=== PATIENT | female | born 1955 | race Caucasian/White ===

== ENCOUNTER 2022-08-10 09:01 | Day surgery (SDC) | payer OTHER, SELFPAY ==
[2022-08-10] VITALS (7 sets, daily range): BP systolic 89–148; BP diastolic 53–72; PULSE 70–74; RESP 14–18; TEMP 36.1–36.3; O2SAT 94–97; BMI 38.1
[2022-08-10] MEDS: Vancomycin IV 1,000 MG/200 ML BAG 200 MG IV (09:40)
--- NOTE | 2022-08-10 09:40 | RAD_ITS ---
STUDY: X-RAY - PELVIS REASON FOR EXAM: Female, 67 years old. AXONICS STAGE 1. TECHNIQUE: Fluoroscopy was provided in the OR during the placement of a bladder stimulator. 15.3 seconds of fluoroscopy were utilized. Exposure of 7.58 mGy. COMPARISON: None. FINDINGS: Fluoroscopy was provided. 3 procedural images were performed for documentation purposes. Please refer to the procedural report for further details. RAD/Pelvis 1 or 2 Views IMPRESSION: Fluoroscopy provided during the placement of a bladder stimulator. Electronically Signed: Monty Li DO at 19:02 EDT ,
[2022-08-10] MEDS: Lactated Ringers 1,000 ML 15 ML IV (09:49)
--- NOTE | 2022-08-10 10:30 | EX.PCM.DISCH ---
Discharge Instructions Diet Discharge Diet: No restrictions Activity Discharge Activity: May Not Shower May resume sexual activity in: 3 weeks Dressing / Incision Call your doctor if your incision/area has: Continuous Slow Oozing, Sudden Increased Bleeding, Increased Pain/ Swelling, Increased Redness, Foul Smelling Discharge and Swelling at the incision site Call your doctor if you observe: Fever of 101 or Higher and Inability to have a bowel movement Suture Line Care: Avoid Pulling/Pushing and Avoid Pinching/Bending Change Dressing in: leave in place till F/U Cleanse incision/area with: Do not get Incision Wet and Keep Dressing Clean & Dry Follow Up Care Please Follow Up With: Jenny Farley MD When: next week, call for appt if not already made Test Results: Test results from this visit will be discussed in further detail at your follow-up appointment, if applicable. Discharge Plan Admission Attending Provider: Jenny Farley Primary Care Provider: Oswaldo Wyatt Discharge Orders/Prescriptions Prescriptions: New oxycodone-acetaminophen [Percocet] 5-325 mg tablet 1 tab PO Q8H PRN (Reason: pain) 3 Days Qty: 10 0RF cephalexin [cephalexin] 500 mg capsule 500 mg PO Q12 3 Days Qty: 6 0RF Continued acetaminophen [Tylenol] 325 mg Tablet 650 mg PO Q4H PRN (Reason: Pain) amlodipine 5 mg Tablet 5 mg PO DAILY levothyroxine 75 mcg Tablet 75 mcg PO DAILY Discontinued tamsulosin 0.4 mg Capsule 0.4 mg PO QHS Referrals / Follow Up: Oswaldo Wyatt DO [Primary Care Provider] - Disposition Disposition (needs filled in before D/C Order can be placed): Home, Self Care
--- NOTE | 2022-08-10 10:34 | OP.PCM_ITS ---
Report of Operation Date of Procedure: 08/10/22 Pre-Operative Diagnosis: urinary retention, neurogenic bladder, urinary tract i nfections Post-Operative Diagnosis: same Surgery/Procedure Performed:: Axonics Stage 1, pocket on the right side Surgeon: Jenny Farley Type of Anesthesia: MAC Description of Procedure: The patient is a 67-year-old female who has been diagnosed with neurogenic bladder and urinary retention after undergoing testing in the office now presents for a stage I Axonics trial. Informed consent has been obtained. The patient was taken to the operating room and placed in a prone position on the operating room table. She is appropriately padded and secured to the table. Anesthesia monitored the head, neck, airway, IV access and vital signs throughout the case. Once anesthesia was appropriately administered, the patient was prepped and draped in usual sterile fashion. Fluoroscopic visualization was used to map out the patient's sacral anatomy. The area overlying her right S3 foramen was infiltrated with 1% lidocaine with epinephrine. The needle was inserted through the S3 foramen and stimulated with good dustin and toe flexion. The guidewire was then passed and a skin incision was made. The dilator was then inserted followed by the lead. At this point the lead was tested and had good response on all 4 leads. Fluoroscopy revealed good positioning in both the AP and lateral views. A pocket site was selected and infiltrated with local. An incision was made and hemostasis was obtained using cautery. Using the tunneling device, the lead was brought into the pocket site where it was cleaned and inserted into the lead extension and secured using the torque wrench. The lead extension was then tunneled to the contralateral side and exited. At this time the incisions were closed using 3-0 Vicryl interrupted deep sutures and 4-0 subcuticular closure with Monocryl. Skin glue was applied to the pocket site incision. Steri-Strips were placed over the lead insertion site. The lead extension was secured to the skin using Steri-Strips. The battery was then attached and secured using Steri-Strips. Everything was covered with an OpSite followed by cloth tape. The patient was then awakened and taken to the recovery room in good condition. There were no complications during this procedure. Grafts/Implants Used: Axonics Lead and Lead extension Complications None Admit VTE Documentation VTE Present on Admission: No VTE Mechan Device Prophylaxis: None VTE Pharm Prophylaxis ordered?: No Reason prophylaxis not ordered:: Treatment Not Indicated
[2022-08-10] MEDS: Lidocaine 1% /Epi 1:100 (50ml) 50 ML VIAL (11:48)
== END 2022-08-10 13:25 | disposition home or self-care (01) ==
LOC: SDC 09:05 → AC 09:06
PROVIDERS: PCP Student in an Organized Health Care Education/Training Program; Referring Provider Urology; Visit Provider Urology
PROC: (CPT 64561; principal; 2022-08-10 10:30)
DX: Z46.2 Encounter for fitting and adjustment of other devices related to nervous system and special senses (principal); R33.9 Retention of urine, unspecified; N31.9 Neuromuscular dysfunction of bladder, unspecified; I10 Essential (primary) hypertension; E03.9 Hypothyroidism, unspecified; M19.90 Unspecified osteoarthritis, unspecified site; Z86.010 Personal history of colon polyps; Z79.899 Other long term (current) drug therapy; Z90.5 Acquired absence of kidney
CPT/HCPCS: 64561; 00300; 72170; 76000; J7120; J2405

== ENCOUNTER 2022-08-24 06:04 | Day surgery (SDC) | payer OTHER, SELFPAY ==
[2022-08-24] MEDS: Lactated Ringers 1,000 ML 15 ML IV (06:34)
[2022-08-24 06:42] VITALS: BP 123/69; PULSE 68; RESP 16; TEMP 36.5; O2SAT 99; BMI 38.1
[2022-08-24] MEDS: Lidocaine 1%/Epi 1:200 (30ml) 30 ML AMPUL (07:59)
[2022-08-24 08:10] VITALS: BP 109/75; BP 123/69; PULSE 72; RESP 18; TEMP 36.6; O2SAT 98
--- NOTE | 2022-08-24 08:13 | DCINST_ITS ---
Discharge Instructions Diet Discharge Diet: No restrictions Activity Discharge Activity: May Shower (tomorrow) May resume sexual activity in: 2 weeks Dressing / Incision Call your doctor if your incision/area has: Continuous Slow Oozing, Sudden Increased Bleeding, Increased Pain/ Swelling, Increased Redness, Foul Smelling Discharge and Swelling at the incision site Call your doctor if you observe: Fever of 101 or Higher and Inability to have a bowel movement Remove Dressing in: leave until fall off Cleanse incision/area with: Keep Dressing Clean & Dry Follow Up Care Please Follow Up With: Jenny Farley MD When: Call office for appointment Test Results: Test results from this visit will be discussed in further detail at your follow- up appointment, if applicable. Discharge Plan Admission Attending Provider: Jenny Farley Primary Care Provider: Oswaldo Wyatt Discharge Orders/Prescriptions Prescriptions: New oxycodone-acetaminophen [Percocet] 5-325 mg tablet 1 tab PO Q8H PRN (Reason: pain) 3 Days Qty: 9 0RF cephalexin [cephalexin] 500 mg capsule 500 mg PO Q12 3 Days Qty: 6 0RF Continued acetaminophen [Tylenol] 325 mg Tablet 650 mg PO Q4H PRN (Reason: Pain) amlodipine 5 mg Tablet 5 mg PO DAILY levothyroxine 75 mcg Tablet 75 mcg PO DAILY Referrals / Follow Up: Oswaldo Wyatt DO [Primary Care Provider] - Disposition Disposition (needs filled in before D/C Order can be placed): Home, Self Care
[2022-08-24 08:15] VITALS: BP 111/69; BP 123/69; PULSE 66; RESP 18; O2SAT 97
[2022-08-24 08:20] VITALS: BP 120/73; BP 123/69; PULSE 64; RESP 18; O2SAT 100
[2022-08-24 08:25] VITALS: BP 123/69; BP 125/79; TEMP 36.7; O2SAT 100
--- NOTE | 2022-08-24 08:29 | OP.PCM_ITS ---
Report of Operation Date of Procedure: 08/24/22 Pre-Operative Diagnosis: Urinary retention Post-Operative Diagnosis: Same Surgery/Procedure Performed:: Axonics stage II Surgeon: Jenny Farley Type of Anesthesia: MAC Description of Procedure: The patient is a 67-year-old female who has not had an extremely successful stage I Axonics trial and now presents for implantation of her battery. Inf ormed consent has been obtained. The patient was taken to the operating room and placed in a prone position on the operating room table. She was appropriately padded and secured to the table. Anesthesia monitored the head, neck, airway, IV access and vital signs throughout the case.Once anesthesia was appropriately administered, the patient was prepped and draped in usual sterile fashion. The area surrounding the pocket incision was infiltrated with lidocaine. The incision was reopened with a knife. The boot was identified and brought into the operative field. Using the torque wrench, the lead was removed from the lead extension which was cut and removed from the field. The pocket site was opened using blunt dissection and Bovie cautery.The pocket was irrigated and hemostasis was obtained. The lead was dried and inserted into the battery and secured using the torque wrench. The battery was placed into the pocket without difficulty in a good position. All leads were found to be without impedances. The pocket was closed in 2 layers with a deep 3-0 Vicryl followed by 4-0 Monocryl subcuticular closure. Skin glue was then applied. The patient was then awakened and taken to the recovery room in good condition. There were no complications during this procedure. Grafts/Implants Used: Axonics battery Complications None Admit VTE Documentation VTE Present on Admission: Yes VTE Mechan Device Prophylaxis: SCD's VTE Pharm Prophylaxis ordered?: No Reason prophylaxis not ordered:: Treatment Not Indicated
[2022-08-24 09:00] VITALS: BP 123/69
== END 2022-08-24 09:10 | disposition home or self-care (01) ==
LOC: SDC 06:05 → AC 06:05
PROVIDERS: PCP Student in an Organized Health Care Education/Training Program; Referring Provider Urology; Visit Provider Urology
PROC: (CPT 64590; principal; 2022-08-24 07:20)
DX: R33.9 Retention of urine, unspecified (principal); N31.9 Neuromuscular dysfunction of bladder, unspecified; E03.9 Hypothyroidism, unspecified; I10 Essential (primary) hypertension; Z79.899 Other long term (current) drug therapy; Z90.5 Acquired absence of kidney
CPT/HCPCS: 64590; 00300; J7050; J2405

== ENCOUNTER → 2024-12-18 | Outpatient (CLI) | payer MEDICARE, SELFPAY ==
--- NOTE | 2024-12-18 07:02 | CT_ITS ---
PROCEDURE: CT ABD/PELVIS W/WO CONTRAST 12/18/2024 REASON FOR EXAM: RECURRENT UTI Patient is status post left nephrectomy. TECHNIQUE: Procedure Code: [id number] Modality: CT Procedure: CT ABD/PELVIS W/WO CONTRAST Coronal and Sagittal reconstruction series were provided. CONTRAST: Isovue-300 VOLUME: 100 mL One or more dose reduction techniques were used (e.g., Automated exposure control, adjustment of the mA and/or kV according to patient size, use of iterative reconstruction technique. RADIATION DOSE SUMMARY: CTDlvol: 31.6 mGy DLP: 3835.7 mGycm COMPARISON: None FINDINGS: Lung bases: Minimal linear scarring at the left lung base. Liver: 1 cm cyst in the medial aspect of the right lobe of the liver along the upper portion. 1 cm cyst also seen in the peripheral medial aspect of the right lobe of the liver as well as in the inferior pole of the liver. Gallbladder: Unremarkable Spleen: Normal size. Pancreas: Normal size without evidence of mass surrounding inflammation or ductal dilation. Adrenals: Unremarkable Kidneys: Status post left nephrectomy. Focal scar is seen along the posterior medial aspect of the midpole of the right kidney as well as in the inferior pole of the right kidney. Bladder: The urinary bladder is distended. Reproductive Organs: Prior hysterectomy. Adnexal regions are unremarkable. Bowel: Unremarkable Appendix: Status post appendectomy. There is a 3.8 cm by 1.6 cm cystic structure in the left hemipelvis as seen on axial image number 70 and coronal image number 74. This may represent either a remnant left fallopian tube or distal portion of the left ureter. Surgical clips are seen along its superior margin. Lymph nodes: Unremarkable. Vasculature: Mild diffuse atherosclerotic calcifications are noted. Peritoneum / Retroperitoneum: Unremarkable Bones: Degenerative changes of the spine. Grade 1 anterior listhesis of L5 on S1. A battery pack of a spinal cord stimulator device is seen overlying the right buttock. CT/CT Abd/Pelvis W/WO Contrast IMPRESSION: Small cysts in the right lobe of the liver. Status post left nephrectomy. Focal scarring is seen along the posterior media l aspect of the midpole of the right kidney as well as along its inferior pole. 3.8 cm 1.6 cm cystic structure in the left hemipelvis suggestive of either remn ant left fallopian tube or possible remnant of the distal left ureter. Surgical clips are seen at that site. Reading Location: [id number]
[2024-12-18 07:38] LABS: Anion Gap 12 (5-15); BUN 28 mg/dL (4-19); BUN/Creat Ratio 18.9 RATIO (10-20); Calcium,Total 9.3 mg/dL (7.6-11.0); Carbon Dioxide 21.2 mmol/L (21.0-32.0); Chloride 106 mmol/L (98-108); Glucose 91 mg/dL (70-99); Potassium 5.0 mmol/L (3.3-5.1)
[2024-12-18 07:42] LABS: CREATININE FINGERSTICK 1.3 mg/dL (0.55-1.02); EGFR FINGERSTICK 44.0000 mL/min (>60)
== END | disposition home or self-care (01) ==
LOC: CT 06:51
PROVIDERS: PCP Student in an Organized Health Care Education/Training Program; Referring Provider Urology; Visit Provider Urology
DX: N39.0 Urinary tract infection, site not specified (principal); Z90.5 Acquired absence of kidney
CPT/HCPCS: 36415; 74178; 80048; Q9967

== ENCOUNTER 2025-01-15 07:16 | Day surgery (SDC) | payer MEDICARE, SELFPAY ==
--- NOTE | 2025-01-07 15:51 | PAT.ANESEVAL ---
Pre-Assessment Diagnosis/Proposed Procedure Planned Operative Procedure(s): REMOVAL AXONIC BATTERY AND LEAD Anesthesia History Anesthesia History - emergency dept tech: Anesthesia History - emergency dept tech Hx Hospitalization No 01/07/25 14:57 Any Problems With Anesthesia No 01/07/25 14:57 Cholinesterase deficiency No 01/07/25 14:57 You/Your Family Experience No 01/07/25 14:57 fever (hyperthermia) with Relationship Recent Exposure to Contagious No 08/24/22 06:38 Disease Does patient have nerve No 01/07/25 14:57 stimulator Patient instructed to have device shut off --Does patient have Pacemaker or ICD? When Was Last Pacemaker Check QUESTION #4 FULL TEXT: You/Your Family Experience fever (hyperthermia) with Anesthesia Last Oral Intake Last Oral intake: Last Oral Intake NPO since Meds taken in AM with sips of water? Meds patient instructed to take am of surgery PONV PONV - emergency dept tech: PONV - emergency dept tech Female Yes 01/07/25 14:57 HX of Motion Sickness No 01/07/25 14:57 HX of N/V After Surgery No 01/07/25 14:57 Non-Smoker Yes 01/07/25 14:57 Duration of Surgery greater Yes 01/07/25 14:57 than 60 minutes Number of Risk Factors 3 01/07/25 14:57 PONV Score Moderate Risk 01/07/25 14:57 Height & Weight Height & Weight: Anesthesia: Height & Weight Height 4 ft 9 in 12/24/24 14:55 Respiratory Assessment Respiratory Assessment - emergency dept tech: Respiratory Tract Infection Hx - emergency dept tech Hx Respiratory Tract Infection No 01/07/25 14:57 STOP Sleep Apnea STOP Sleep Apnea - emergency dept tech: STOP Sleep Apnea - emergency dept tech Hx Hypertension Yes: CONTROLLED WITH MEDS 01/07/25 14:57 Hx Sleep Apnea No 01/07/25 14:57 CPAP BIPAP Do you snore loudly (louder No 01/07/25 14:57 than talking or can be heard Do you often feel tired/ No 01/07/25 14:57 fatigued/ sleepy during daytime? Has anyone observed you stop No 01/07/25 14:57 breathing during sleep? STOP Results Negative 01/07/25 14:57 QUESTION #5 FULL TEXT : Do you snore loudly (louder than talking or can be heard through closed doors)? Tobacco Use History Tobacco Use History - emergency dept tech: Tobacco Use History - emergency dept tech Tobacco Use Smoking Status Never smoker 01/07/25 14:57 Hx Tobacco Use No 01/07/25 14:57 Years Smoking Packs Smoked per Day Smoking Cessation Date was within the last 15 years Hx Smoking Cessation Date Hx Smoking Cessation Counseling Hematologic Medial History Hematologic Hx - emergency dept tech: Hematologic Medical Hx - baker pie Hx of Blood Transfusion Yes 01/07/25 14:57 Hx of Transfusion in last 3 No 01/07/25 14:57 Months Date of Last Transfusion (if within last 3 months) Ever experience any problems No 01/07/25 14:57 with transfusion(s)? Specify any problems Hx of Preganancy in last 3 No 01/07/25 14:57 Months Nurse Filling Out Transfusion DSCHRIBER 01/07/25 14:57 & Questions: Date: 01/07/25 01/07/25 14:57 Time: 14:58 01/07/25 14:57 Patient unable to answer at this time (ie. confused, unrespo /Reproduction History /Reproductive History - emergency dept tech: /Reproductive Hx- emergency dept tech Hx Now No 01/07/25 14:57 Gestational Age (in weeks): EDC: Hx Hx Para Hx Section SAB No 01/07/25 14:57 PFSH Medical History (Updated 01/07/25 @ 15:33 by Edilma Martinez) Cancer Shortness of breath on exertion Leg cramps Vaginal vault prolapse after hysterectomy Rectocele H/O implanted metallic device Heart attack Single kidney Sigmoid diverticulitis Hyperlipidemia Hx of bladder problems Wears dentures Thyroid disease Bladder disease Blackout History of ulceration Non-smoker History of echocardiogram Cardiology follow-up encounter Whooping cough Hypertension Arthritis Rheumatoid arthritis Osteoporosis Home Medications ?Medication ?Instructions ?Recorded ?Last Taken ?Type acetaminophen 325 mg tablet 650 mg PO Q4H PRN Pain 08/03/22 Unknown History (Tylenol) amlodipine 5 mg tablet 5 mg PO DAILY 08/03/22 08/24/22 History levothyroxine 75 mcg tablet 75 mcg PO DAILY 08/03/22 08/24/22 History Gemtesa 75 mg tablet (vibegron) 75 mg PO QDAY #90 tabs 01/02/25 Unknown Rx aspirin 81 mg tablet,delayed 81 mg PO DAILY 01/07/25 Unknown History release (Adult Aspirin Regimen) clopidogrel 75 mg tablet 75 mg PO DAILY 01/07/25 Unknown History estradiol 0.01% (0.1 mg/gram) 1 appful vaginal MOWEFR 01/07/25 Unknown History vaginal cream losartan 25 mg tablet 12.5 mg PO DAILY 01/07/25 Unknown History metoprolol succinate 25 mg 12.5 mg PO DAILY 01/07/25 Unknown History tablet,extended release 24 hr trimethoprim 100 mg tablet 100 mg PO QHS #90 tabs 01/07/25 Unknown Rx Allergy/AdvReac Type Severity Reaction Status Date / Time chlorhexidine (From Allergy skin Verified 01/07/25 14:50 ChloraPrep Clear) reaction ciprofloxacin (From Cipro) Allergy Anaphylaxis Verified 01/07/25 14:50 diphenhydramine (From Allergy Hives Verified 01/07/25 14:50 Benadryl) isopropyl alcohol (From Allergy skin Verified 01/07/25 14:50 ChloraPrep Clear) reaction povidone-iodine (From Allergy ITCHING Verified 01/07/25 14:50 Betadine) AND REDNESS OF SKIN/SEVERE Family History Other Asthma Breast cancer CVA (cerebral vascular accident) Cancer Diabetes Hyperchloremia Hypertension Kidney disease Seizures Surgical History (Updated 01/07/25 @ 15:33 by Edilma Martinez) History of cardiac catheterization History of Yanira fundoplication Hx of hemorrhoidectomy H/O heart artery stent H/O thyroidectomy History of carpal tunnel surgery of left wrist Hx of tubal ligation Hx of esophagogastroduodenoscopy Hx of colonoscopy Hx of tonsillectomy Hx of appendectomy Hx of umbilical hernia repair Hx of left inguinal hernia repair Hx of bladder repair surgery Hx of total hysterectomy History of nephrectomy Hx of total thyroidectomy Hx of total knee arthroplasty Hx of total knee arthroplasty Social History Smoking Status: Never smoker alcohol intake: never substance use type: does not use what type of physical activity do you participate in: other frequency: other duration: other do you feel safe at home: Yes Prior Cardiac Testing/Procedures Prior Cardiac Testing/Procedures: Echocardiogram (05/03 EF 40%) and Stenting (01/30 to LAD PCI) Addt'l Information Additional Findings: EKG sinus with LBBB; >4METS Recommendation Anesthesia Recommendation Anesthesia recommendation: OPTIMIZED for anesthesia
[2025-01-15] VITALS (14 sets, daily range): BP systolic 68–123; BP diastolic 22–74; PULSE 54–76; RESP 14–17; TEMP 36.1–37; O2SAT 94–99; BMI 38.0
--- NOTE | 2025-01-15 07:20 | PCM.PRE.AN2 ---
ASA Classification* ASA Classification ASA Classification: 2 Assessment & Plan Anesthesia* Anesthesia Assessment Anesthesia Assessment: Discussed sedation and/or anesthesia options, risks, benefits, and alternatives with patient/parents/legal guardian/POA. Questions invited. The patient/parents/legal guardian/POA seems to understand and agrees to proceed with anesthesia plan. Reviewed the physical assessment, medical history, allergy history and patient home medications list prior to surgery/procedure/anesthetic and documented any changes. Performed airway and anesthesia risk assessments. Anesthesia Type Anesthesia Type: MAC Anesthesia Focused Assessment* Airway Assessment Mouth opens: >3 cm Mallampati Score: II Labs Anesthesia Preop lab: CBC CHEMISTRY Potassium, (3.3-5.1) 5.0 mmol/L 12/18/24, 06:55 Sodium, (133-145) 140 mmol/L 12/18/24, 06:55 BUN, (4-19) 28 mg/dL H 12/18/24, 06:55 Creatinine, (0.70-1.20) 1.48 mg/dL H 12/18/24, 06:55 Glucose, (70-99) 91 mg/dL 12/18/24, 06:55 COAG Pre-Assessment Diagnosis/Proposed Procedure Planned Operative Procedure(s): REMOVAL AXONIC BATTERY AND LEAD Anesthesia History Anesthesia History - health safety coordinator: Anesthesia History - health safety coordinator Hx Hospitalization No 01/07/25 14:57 Any Problems With Anesthesia No 01/07/25 14:57 Cholinesterase deficiency No 01/07/25 14:57 You/Your Family Experience No 01/07/25 14:57 fever (hyperthermia) with Relationship Recent Exposure to Contagious No 08/24/22 06:38 Disease Does patient have nerve No 01/07/25 14:57 stimulator Patient instructed to have device shut off --Does patient have Pacemaker or ICD? When Was Last Pacemaker Check QUESTION #4 FULL TEXT: You/Your Family Experience fever (hyperthermia) with Anesthesia Last Oral Intake Last Oral intake: Last Oral Intake NPO since Meds taken in AM with sips of water? Meds patient instructed to take am of surgery PONV PONV - health safety coordinator: PONV - health safety coordinator Female Yes 01/07/25 14:57 HX of Motion Sickness No 01/07/25 14:57 HX of N/V After Surgery No 01/07/25 14:57 Non-Smoker Yes 01/07/25 14:57 Duration of Surgery greater Yes 01/07/25 14:57 than 60 minutes Number of Risk Factors 3 01/07/25 14:57 PONV Score Moderate Risk 01/07/25 14:57 Height & Weight Height & Weight: Anesthesia: Height & Weight Height 4 ft 9 in 12/24/24 14:55 Respiratory Assessment Respiratory Assessment - health safety coordinator: Respiratory Tract Infection Hx - health safety coordinator Hx Respiratory Tract Infection No 01/07/25 14:57 STOP Sleep Apnea STOP Sleep Apnea - health safety coordinator: STOP Sleep Apnea - health safety coordinator Hx Hypertension Yes: CONTROLLED WITH MEDS 01/07/25 14:57 Hx Sleep Apnea No 01/07/25 14:57 CPAP BIPAP Do you snore loudly (louder No 01/07/25 14:57 than talking or can be heard Do you often feel tired/ No 01/07/25 14:57 fatigued/ sleepy during daytime? Has anyone observed you stop No 01/07/25 14:57 breathing during sleep? STOP Results Negative 01/07/25 14:57 QUESTION #5 FULL TEXT : Do you snore loudly (louder than talking or can be heard through closed doors)? 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 Specify any problems Hx of Preganancy in last 3 No 01/07/25 14:57 Months Nurse Filling Out Transfusion DSCHRIBER 01/07/25 14:57 & Questions: Date: 01/07/25 01/07/25 14:57 Time: 14:58 01/07/25 14:57 Patient unable to answer at this time (ie. confused, unrespo /Reproduction History /Reproductive History - health safety coordinator: /Reproductive Hx- health safety coordinator Hx Now No 01/07/25 14:57 Gestational Age (in weeks): EDC: Hx Hx Para Hx Section SAB No 01/07/25 14:57 Active Medications Active Medications: Current Medications Generic Name Dose Route Start Last Admin Trade Name Freq PRN Reason Stop Dose Admin Cefazolin Sodium 2 gm/ Sodium 110 mls @ 200 mls/hr 01/15/25 08:25 Chloride IV 01/15/25 08:57 INTRAOP [facility] Medical History Cancer Shortness of breath on exertion Leg cramps Vaginal vault prolapse after hysterectomy Rectocele H/O implanted metallic device Heart attack Single kidney Sigmoid diverticulitis Hyperlipidemia Hx of bladder problems Wears dentures Thyroid disease Bladder disease Blackout History of ulceration Non-smoker History of echocardiogram Cardiology follow-up encounter Whooping cough Hypertension Arthritis Rheumatoid arthritis Osteoporosis Home Medications ?Medication ?Instructions ?Recorded ?Last Taken ?Type acetaminophen 325 mg tablet 650 mg PO Q4H PRN Pain 08/03/22 Unknown History (Tylenol) amlodipine 5 mg tablet 5 mg PO DAILY 08/03/22 08/24/22 History levothyroxine 75 mcg tablet 75 mcg PO DAILY 08/03/22 08/24/22 History Gemtesa 75 mg tablet (vibegron) 75 mg PO QDAY #90 tabs 01/02/25 Unknown Rx aspirin 81 mg tablet,delayed 81 mg PO DAILY 01/07/25 Unknown History release (Adult Aspirin Regimen) clopidogrel 75 mg tablet 75 mg PO DAILY 01/07/25 Unknown History estradiol 0.01% (0.1 mg/gram) 1 appful vaginal MOWEFR 01/07/25 Unknown History vaginal cream losartan 25 mg tablet 12.5 mg PO DAILY 01/07/25 Unknown History metoprolol succinate 25 mg 12.5 mg PO DAILY 01/07/25 Unknown History tablet,extended release 24 hr trimethoprim 100 mg tablet 100 mg PO QHS #90 tabs 01/07/25 Unknown Rx Allergy/AdvReac Type Severity Reaction Status Date / Time chlorhexidine (From Allergy skin Verified 01/14/25 08:43 ChloraPrep Clear) reaction ciprofloxacin (From Cipro) Allergy Anaphylaxis Verified 01/14/25 08:43 diphenhydramine (From Allergy Hives Verified 01/14/25 08:43 Benadryl) isopropyl alcohol (From Allergy skin Verified 01/14/25 08:43 ChloraPrep Clear) reaction povidone-iodine (From Allergy ITCHING Verified 01/14/25 08:43 Betadine) AND REDNESS OF SKIN/SEVERE Family History Other Asthma Breast cancer CVA (cerebral vascular accident) Cancer Diabetes Hyperchloremia Hypertension Kidney disease Seizures Surgical History History of cardiac catheterization History of Yanira fundoplication Hx of hemorrhoidectomy H/O heart artery stent H/O thyroidectomy History of carpal tunnel surgery of left wrist Hx of tubal ligation Hx of esophagogastroduodenoscopy Hx of colonoscopy Hx of tonsillectomy Hx of appendectomy Hx of umbilical hernia repair Hx of left inguinal hernia repair Hx of bladder repair surgery Hx of total hysterectomy History of nephrectomy Hx of total thyroidectomy Hx of total knee arthroplasty Hx of total knee arthroplasty Social History Smoking Status: Never smoker alcohol intake: never substance use type: does not use what type of physical activity do you participate in: other frequency: other duration: other do you feel safe at home: Yes Review of Systems (Anesthesia) ROS Narrative System reviewed and no additional complaints, except as documented.
[2025-01-15 07:51] LABS: Hematocrit 38.5 % (37-47); Hemoglobin 13.2 g/dL (12.0-15.0); Mean Corp Hgb Conc 34.3 g/dL (32-36); Mean Corpuscular Volume 90.4 fL (81-99); Mean Platelet Vol. 9.6 fl (6.2-12.0); Platelet Count 236 K/mm3 (150-450); RBC Distribution Width CV 13.1 % (11.6-14.6); RBC Distribution Width SD 43.1 fl (35.1-43.9); Red Blood Count 4.26 M/mm3 (4.2-5.4); White Blood Count 4.6 K/mm3 (4.4-11.0)
[2025-01-15] MEDS: Lactated Ringers 1,000 ML 15 ML IV (08:03)
--- NOTE | 2025-01-15 08:29 | DCINST_ITS ---
Discharge Instructions Diet Discharge Diet: No restrictions Activity Discharge Activity: May Shower (Sunday) May resume sexual activity in: 2 weeks Dressing / Incision Call your doctor if your incision/area has: Continuous Slow Oozing, Sudden Increased Bleeding, Increased Pain/ Swelling, Increased Redness and Foul Smelling Discharge Call your doctor if you observe: Fever of 101 or Higher and Inability to have a bowel movement Cleanse incision/area with: Soap & Water (pat dry) Follow Up Care Please Follow Up With: Jenny Farley MD Test Results: Test results from this visit will be discussed in further detail at your follow- up appointment, if applicable. Discharge Plan Admission Attending Provider: Jenny Farley Primary Care Provider: Oswaldo Wyatt Instructions Print Language: Armenian Discharge Orders/Prescriptions Prescriptions: New oxycodone-acetaminophen 5-325 mg tablet 1 tab PO Q8H PRN (Reason: pain) 3 Days Qty: 10 0RF ondansetron 4 mg tablet,disintegrating 4 mg PO Q8H PRN (Reason: nausea and vomiting) Qty: 10 0RF Continued acetaminophen [Tylenol] 325 mg Tablet 650 mg PO Q4H PRN (Reason: Pain) amlodipine 5 mg Tablet 5 mg PO DAILY levothyroxine 75 mcg Tablet 75 mcg PO DAILY estradiol 0.01 % (0.1 mg/gram) cream 1 appful vaginal MOWEFR aspirin [Adult Aspirin Regimen] 81 mg tablet,delayed release (DR/EC) 81 mg PO DAILY losartan 25 mg tablet 12.5 mg PO DAILY clopidogrel 75 mg tablet 75 mg PO DAILY metoprolol succinate 25 mg tablet extended release 24 hr 12.5 mg PO DAILY Gemtesa 75 mg tablet 75 mg PO QDAY Qty: 90 3RF trimethoprim 100 mg tablet 100 mg PO QHS Qty: 90 0RF Referrals / Follow Up: Oswaldo Wyatt DO [Primary Care Provider, Family Practice] Disposition Disposition (needs filled in before D/C Order can be placed): Home, Self Care
--- NOTE | 2025-01-15 08:29 | HP.PCM_ITS ---
History and Physical Date of Admission: 01/15/25 Date of Service: 12/24/24 MR#: [id number] Acct: [id number] Name: CHECO CASTANEDA Rep #: [id number] : 1955 Provider: Dr. Jenny Farley MD Age/Sex: 69/F Location: [facility] – [place] Status: Signed Intake Vital Signs 12/16/2512:12 12/24/2513:55 Height 4 ft 9 in 4 ft 9 in Weight: 179 lb 179 lb BMI 38.7 38.7 BP 133/89 H 110/60 Pulse 72 72 Intake Visit Reasons: CYSTO PELVIC Chief Complaint: cysto Field Traffic Investigator Required: No Accompanied by: self Is patient in pain?: No Allergies chlorhexidine (From ChloraPrep Clear) Allergy (Verified 12/24/24 14:53) skin reaction ciprofloxacin (From Cipro) Allergy (Verified 12/24/24 14:53) Anaphylaxis diphenhydramine (From Benadryl) Allergy (Verified 12/24/24 14:53) Hives isopropyl alcohol (From ChloraPrep Clear) Allergy (Verified 12/24/24 14:53) skin reaction povidone-iodine (From Betadine) Allergy (Verified 12/24/24 14:53) ITCHING AND REDNESS OF SKIN/SEVERE Medications ?Medication ?Instructions ?Recorded ?Confirmed ?Type acetaminophen 325 mg tablet 650 mg PO Q4H PRN Pain 08/03/22 12/24/24 History (Tylenol) amlodipine 5 mg tablet 5 mg PO DAILY 08/03/22 12/24/24 History levothyroxine 75 mcg tablet 75 mcg PO DAILY 08/03/22 12/24/24 Histor y estradiol 2 mg (7.5 mcg/24 hour) 1 vag ring vaginal [id number] #1 ea 12/24/24 Rx vaginal ring (Estring) Gemtesa 75 mg tablet (vibegron) 75 mg PO QDAY #90 tabs 12/24/24 12/24/24 Rx Have you fallen in the past year?: No Nurse's Note: abdomen cramping and vaginal pressure never goes away. [facility] Medical History Vaginal vault prolapse after hysterectomy Rectocele Abnormal bladder function test H/O implanted metallic device Heart attack Single kidney Sigmoid diverticulitis Hyperlipidemia UTI (urinary tract infection) Urinary retention Hx of bladder problems Wears dentures Rash Thyroid disease Bladder disease Easy bruising Blackout History of ulceration Colon polyps Non-smoker History of pain when walking History of echocardiogram Cardiology follow-up encounter Whooping cough Hypertension Arthritis Rheumatoid arthritis Osteoporosis Surgical History H/O heart artery stent H/O thyroidectomy History of carpal tunnel surgery of left wrist Hx of tubal ligation Hx of esophagogastroduodenoscopy Hx of colonoscopy Hx of tonsillectomy Hx of appendectomy Hx of umbilical hernia repair Hx of left inguinal hernia repair Hx of bladder repair surgery Hx of total hysterectomy History of nephrectomy Hx of total thyroidectomy Hx of total knee arthroplasty Hx of total knee arthroplasty Family History Other Asthma Breast cancer CVA (cerebral vascular accident) Cancer Diabetes Hyperchloremia Hypertension Kidney disease Seizures Social History Smoking Status: Never smoker alcohol intake: never substance use type: does not use what type of physical activity do you participate in: other frequency: other duration: other do you feel safe at home: Yes HPI HPI Urology Chief Complaint: cysto Details: CHECO CASTANEDA, is a 69 F. She is here for cystoscopy for evaluation urinary tract infections. She has no sign of acute urinary tract infection today. She denies hematuria. Questions regarding the procedure were answered and she gives consent to proceed. She is cathing 3 times a day after voiding and getting residuals between 300-600 cc usually. He is drinking plenty of fluids and her urine has remained clear. She is using her vaginal estrogen cream. She does report that she is having significant painful bladder spasms after cathing. We discussed adding an overactive bladder medication now that she is cathing. We discussed Gemtesa and its side effects. ROS Const Constitutional: No chills, fatigue, fever(s), headache(s), night sweats, weakness, weight change, abnormal sleep pattern or change in appetite Eyes Eyes: No change in vision ENT ENT: No headache(s) or dry mouth Resp Respiratory: No cough, chest congestion, shortness of breath or wheezing Cardio Cardiology: Positive for other (No chest pain.); No shortness of breath, irregular heart rhythm or lightheadedness Gastro GI: Positive for other (No nausea.); No abdominal pain, change in bowel habits, constipation, diarrhea or vomiting Musc Musculoskeletal: No abnormal gait Skin Skin: No yellowing of the eye, lesions, itchy eyes, rash or skin ulcer Neuro Neurology: No abnormal gait, confusion, dizziness, weakness, headache(s) or memory loss Psych Psychiatric: No abnormal sleep pattern, No change in appetite, No confusion and No memory loss Endo Endocrine: No fatigue, increased thirst/drinking or weight change Aller/Imm Allergy/Immunologic: No itchy eyes or wheezing Andriy/Lymp Hematologic/Lymphatic: No easy bleeding, easy bruising or enlarged lymph nodes Exam Const General: cooperative, healthy appearing, comfortable and no acute distress [facility] Head: normocephalic and atraumatic Ears: hearing grossly normal bilaterally and external ears normal Nose: external nose normal Eyes General: appearance normal, both eyes and all related structures Neck Neck: normal visual inspection and trachea midline Chest Chest palpation & inspection: normal inspection of the chest Resp Effort & Inspection: normal respiratory effort, able to speak in complete sentences and symmetric chest movement Cardio Rate: regular rate GI Inspection: normal to inspection Palpation: soft and nontender General: No CVA tenderness Skin General: no rashes or lesions noted Neuro General: patient alert, patient awake, patient oriented x3 and CN's II-XI intact bilaterally Extrem General: normal to inspection Psych Appearance: grossly normal and well kempt Mental Status: mental status grossly normal Office Procedures Cystoscopy Procedure Completed: Yes Cystoscopy: The patient was placed into dorsal lithotomy position, and was cleaned in usual sterile fashion. The urethra was anesthetized with 2% lidocaine jelly. The cystoscope was inserted through the urethra under direct visualization. No urethral abnormalities were detected. The bladder in its entirety was inspected. The ureteral orifices were identified bilaterally in correct anatomic position. The following were identified: no mass, erythema, ulceration or foreign body. There is one small area of trauma on the trigone likely due to cathing. The cystoscope was removed, and the procedure was terminated. The patient tolerated the procedure well without complication or difficulty. Coding Level of Care Code Off vis,est,level 4 Diagnoses Urinary retention R33.9 Neuromuscular dysfunction of bladder, unspecified N31.9 UTI (urinary tract infection) N39.0 Rectocele N81.6 Vaginal vault prolapse after hysterectomy N99.3 Fecal smearing R15.1 Single kidney Z90.5 Assessment and Plan Assessment and Plan (1) Urinary retention: Status: Acute (2) Neuromuscular dysfunction of bladder, unspecified: Status: Acute (3) UTI (urinary tract infection): Status: Acute (4) Rectocele: Status: Acute (5) Vaginal vault prolapse after hysterectomy: Status: Acute (6) Fecal smearing: Status: Acute (7) Single kidney: Status: Acute Orders: Orders Cysto 12/24/24 N39.0 - Urinary tract infection, site not specified Medications: New Gemtesa (vibegron) 75 mg PO QDAY 90 tabs 3RF NS Discontinued ospemifene (Osphena) must administer with food, preferably a high-fat meal Discontinued Reason: Cost Prohibitive 60 mg PO QDAY 90 tabs 3RF metronidazole Discontinued Reason: Order Completed 500 mg PO BID 14 tabs 0RF Plan Self cath 4 times a day and as needed. This will be indefinite. Will order catheters. Continue estrogen cream Add Gemtesa 75mg, side effects discussed. schedule for explant of Narvii battery and lead. Comments Comments: Gemtesa samples Clinical Quality Measures Falls Risk Screening/Assistive Devices Have you fallen in the past year?: No 12/25/24 0944 <Electronically signed by Jenny Farley MD> Date Jenny Farley MD
--- NOTE | 2025-01-15 08:39 | OP.PCM_ITS ---
Operative Report (Standard) Operative Information Date of Procedure: 01/15/25 Pre-Operative Diagnosis: Urinary retention Post-Operative Diagnosis: Same, failed Axonics Surgery/Procedure Performed: Explant Axonics battery and lead formation fracturing operator: No Type of Anesthesia: MAC RN Documented Start/Stop Times: Operation Date: 01/15/25 08:30 Case Time Into Pre-Op 01/15/25 07:21 Out of Pre-Op 01/15/25 08:41 Anesthesia Start 01/15/25 08:48 Into Room 01/15/25 08:48 Procedure Start 01/15/25 09:01 Procedure End 01/15/25 09:17 Anesthesia End 01/15/25 09:22 Out of Room 01/15/25 09:22 Into Recovery 01/15/25 09:25 Procedure Start Time: : Procedure Stop Time: :17 Select all DRAINS/GRAFTS/IMPLANTS that apply: None Estimated Blood Loss: <10cc Specimen collected: No Description of surgery: The patient is a 69-year-old female with a history of urinary retention and an Axonics device that was successful in maintaining bladder emptying for approximately 2 years. The device well functioning appropriately, has not been working successfully for bladder emptying and she now presents for removal of the unit in its entirety. Informed consent was obtained. The patient was taken to the operating room and placed in a prone position on the operating room table. She was appropriately padded and secured to the table. Anesthesia monitored the head, neck, airway, IV access and vital signs throughout the case. Once anesthesia was appropriately administered she was prepped and draped in usual sterile fashion. The area overlying the battery and lead were both infiltrated with local anesthetic. Incision was made in these areas down to the battery and the pocket site and the lead and the lead insertion site. The battery was brought into the operative field and the lead was cut effectively removing the battery from the field. The pocket was irrigated and the Bovie was utilized for hemostatic control. The lead was grasped with hemostats and slowly removed in its entirety. This area was also irrigated and cautery was used for hemostatic control. The incisions were then closed with 3-0 interrupted Vicryl followed by 4-0 Monocryl subcuticular suturing and skin glue. She was then awakened and taken to the recovery room in good condition. There were no complications during this procedure. Surgical Findings: Battery and lead removed in their entirety Complications Complications: No Admit VTE Documentation VTE Present on Admission: Yes VTE Mechan Device Prophylaxis: SCD's VTE Pharm Prophylaxis ordered?: Yes
[2025-01-15] MEDS: Cefazolin 1 GM/5 ML Vial 2 GM IV (08:48)
[2025-01-15] MEDS: Lactated Ringers 500 ML IV (08:48)
[2025-01-15] MEDS: Lidocaine 1% (5 ml sdv) 5 ML Vial IV (08:51)
[2025-01-15] MEDS: fentaNYL 100 MCG/2 ML Ampul 25 MCG IV (08:53)
[2025-01-15] MEDS: dexMEDEtomidine 200 MCG/2 ML ML 40 MCG IV (09:04)
[2025-01-15] MEDS: Lidocaine 1% /Epi 1:100 (20ml) 20 ML Vial (09:10)
--- NOTE | 2025-01-15 10:05 | PCM.POST.ANE ---
Anesthesia: Postop Eval I Current Vital Signs Temperature: 97.4 F Pulse Rate: 58 Blood Pressure: 115/74 Respiratory Rate: 14 Pulse Ox: 98 Oxygen Delivery Method: Room Air Assessment Airway patent: Yes Spontaneous unlabored respirations: Yes Mental status: Awake and Calm nausea: No Vomiting: No Anesthesia Complication: No Fluid Hydration Crystalloid volume administer (ml): 500 Total IV fluid infused: 500 Progress Note Anesthesia document: Postop Eval 1 completed: Yes
--- NOTE | 2025-01-15 10:15 | POSTOPAN2_ITS ---
Anesthesia Postop Eval I Sum Postop Eval Completion status Anesthesia document: Postop Eval 1 completed: Yes Anesthesia Postop Eval I Summary Anesthesia Postop Eval I Summary: Anesthesia Postop Eval I: Assessment Summary Airway patent Yes 01/15/25 10:06 AIRPORT OPERATIONS COORDINATOR.MATTU Spontaneous unlabored Yes 01/15/25 10:06 AIRPORT OPERATIONS COORDINATOR.CHAPIN respirations Mental status Awake,Calm 01/15/25 10:06 AIRPORT OPERATIONS COORDINATOR.MERCEDESLOU nausea No 01/15/25 10:06 AIRPORT OPERATIONS COORDINATOR.MERCEDESLOU Vomiting No 01/15/25 10:06 AIRPORT OPERATIONS COORDINATOR.MERCEDESLONereyda Anesthesia Postop Eval I: Fluid Summary Crystalloid volume administer 500 01/15/25 10:06 AIRPORT OPERATIONS COORDINATOR.CHAPIN (ml) Colloids volume administered ( ml) Blood Product volume administered (ml) Total IV fluid infused 500 01/15/25 10:06 AIRPORT OPERATIONS COORDINATOR.CHAPIN Anesthesia Postop Eval I: Summary Notes Anesthesia Complication No 01/15/25 10:06 AIRPORT OPERATIONS COORDINATOR.CHAPIN Anesthesia Complication Comment: Post-operative progress note Anesthesia: Postop Eval II Evaluation Mental status: Awake Pain Level: 0 nausea: No Vomiting: No
--- NOTE | 2025-01-15 10:15 | PCM.POSTANE2 ---
Anesthesia Postop Eval I Sum Postop Eval Completion status Anesthesia document: Postop Eval 1 completed: Yes Anesthesia Postop Eval I Summary Anesthesia Postop Eval I Summary: Anesthesia Postop Eval I: Assessment Summary Airway patent Yes 01/15/25 10:06 WATER RESOURCE CONSULTANT.MATTU Spontaneous unlabored Yes 01/15/25 10:06 WATER RESOURCE CONSULTANT.CHAPIN respirations Mental status Awake,Calm 01/15/25 10:06 WATER RESOURCE CONSULTANT.MERCEDESLOU nausea No 01/15/25 10:06 WATER RESOURCE CONSULTANT.MERCEDESLOU Vomiting No 01/15/25 10:06 WATER RESOURCE CONSULTANT.MERCEDESLONereyda Anesthesia Postop Eval I: Fluid Summary Crystalloid volume administer 500 01/15/25 10:06 WATER RESOURCE CONSULTANT.CHAPIN (ml) Colloids volume administered ( ml) Blood Product volume administered (ml) Total IV fluid infused 500 01/15/25 10:06 WATER RESOURCE CONSULTANT.CHAPIN Anesthesia Postop Eval I: Summary Notes Anesthesia Complication No 01/15/25 10:06 WATER RESOURCE CONSULTANT.CHAPIN Anesthesia Complication Comment: Post-operative progress note Anesthesia: Postop Eval II Evaluation Mental status: Awake Pain Level: 0 nausea: No Vomiting: No
== END 2025-01-15 11:40 | disposition home or self-care (01) ==
LOC: SDC 07:18 → AC 07:19
PROVIDERS: PCP Student in an Organized Health Care Education/Training Program; Referring Provider Urology; Visit Provider Urology
PROC: (CPT 64595; principal; 2025-01-15 08:15)
DX: N39.0 Urinary tract infection, site not specified (principal); N32.89 Other specified disorders of bladder; R15.1 Fecal smearing; E78.5 Hyperlipidemia, unspecified; I10 Essential (primary) hypertension; R33.9 Retention of urine, unspecified; N31.9 Neuromuscular dysfunction of bladder, unspecified; N99.3 Prolapse of vaginal vault after hysterectomy; Z90.5 Acquired absence of kidney; N32.81 Overactive bladder; Z79.899 Other long term (current) drug therapy
CPT/HCPCS: 64595; 64585; 00400; 85027; 93005; J2405